=== PATIENT | female | born 1945 | race Two or more races ===

== ENCOUNTER 2020-04-24 05:48 | Day surgery (SDC) | payer OTHER | END 2020-04-24 10:26 | disposition home or self-care (01) | LOC: AMB-ENDOS 05:48 | PROVIDERS: ATTEND Surgery | DX: D12.2 Benign neoplasm of ascending colon (principal); K64.8 Other hemorrhoids; Z20.828 Contact with and (suspected) exposure to other viral communicable diseases ==